=== PATIENT | male | born 1985 | race Caucasian/White ===

== ENCOUNTER 2024-01-12 13:29 | Emergency (ER) | payer BC, SELFPAY ==
[2024-01-12] VITALS (7 sets, daily range): BP systolic 101–118; BP diastolic 67–99; PULSE 84–115; RESP 18–20; TEMP 36.7–36.9; O2SAT 96–99; BMI 24.3
--- NOTE | 2024-01-12 13:58 | ED.GENADULT ---
HPI - General Adult General Chief complaint: Abdominal Pain Stated complaint: Vomiting Time Seen by Provider: 01/12/24 16:24 Source: patient Mode of arrival: ambulatory Limitations: no limitations History of Present Illness ED Provider: Dr. Lala Ryan HPI narrative: patient comes to the emergency room complaining of vomiting. Patient states that it has been going on for 2 days. Patient reports that couple of days ago patient ate Italian food, consisting of rice and pork. Patient states that he usually does not eat pork. However, patient admits that he took some of the food To his house and and reheated the rice. patient denies diarrhea. Complaining of abdominal discomfort. Also, patient states that he has been feeling a bit lightheaded, states that he nearly passed out few days ago at work. The patient states that his symptoms have been going on for about a year. Patient denies syncopal episodes, no chest pain or shortness of breath. No lower extremity swelling or pain. Related Data Allergies Allergy/AdvReac Type Severity Reaction Status Date / Time No Known Allergies Allergy Verified 01/12/24 14:00 Review of Systems Review of Systems: Constitutional : No Weight loss, No Fever, No Chills, No Night Sweats, No Fatigue, No Malaise ENT/Mouth : No Hearing loss, No Ear Pain, No Nasal Congestion, No Sinus Pain, No Hoarseness, No sore throat, No Rhinorrhea, No Swallowing Difficulty Eyes: No Eye Pain, No Swelling, No Redness, No Foreign Body, No Discharge, No Vision Changes Cardiovascular : No Chest Pain, No SOB, No Dyspnea on Exertion, No Orthopnea, No Edema, No Palpitations Respiratory : No Cough, No Sputum, No Wheezing, No Smoke Exposure, No Dyspnea Gastrointestinal : Complaining of nausea and vomiting, No Diarrhea, No Constipation, No abdominal Pain, No Hematochezia, No Melena Genitourinary : no irregular bleeding, No Dysuria, No Urinary Frequency, No Hematuria, No Urinary Incontinence, No Urgency, No Flank Pain, No Urinary Flow Changes, No Hesitancy Musculoskeletal : No joint pain, No Myalgias, No Joint Swelling Skin : No Skin Lesions, No rash Neuro : No Weakness, No Numbness, No Paresthesias, No Loss of Consciousness, No Dizziness, No Headache Psych : No Anxiety/Panic, No Depression, No SI/HI/AH/VH, No Social Issues, Heme/Lymph: No Bruising, No Bleeding,No Lymphadenopathy Endocrine : No Polyuria, No Polydipsia, No Temperature Intolerance [facility] Social History Social History Smoked in Last 30 Days: No Use of substances other than those prescribed or required for medical reasons: No Substance Use Type: Former Substance User Advance Directives: No Advance Directives Information Provided: Yes Do you have a plan to hurt others: No Plan Physical Exam ED Vital Signs: Vital Signs - 24 hr 01/12/24 13:56 01/12/24 16:30 01/12/24 17:23 Temperature 98.5 F 98.2 F Pulse Rate 92 91 94 Respiratory Rate 18 18 Blood Pressure 113/67 118/73 110/71 Pulse Oximetry 98 99 Oxygen Delivery Method Room Air Room Air 01/12/24 17:25 01/12/24 17:27 01/12/24 17:29 Temperature Pulse Rate 84 115 H 115 H Respiratory Rate 20 Blood Pressure 101/73 114/70 114/70 Pulse Oximetry Oxygen Delivery Method BMI result Body Mass Index 24.3 Const Other: Appearance: Alert. Oriented X3. No acute distress. Eyes: Pupils equal, round and reactive to light. ENT: Pharynx normal. Neck: Normal inspection. Neck supple. No lymph nodes noted. No crepitus CVS: Normal heart rate and rhythm. Pulses normal. Normal S1 and S2 Respiratory: No respiratory distress. Breath sounds normal. No Wheezing. No rales Abdomen: Soft and nontender. No rigidity. No distention. Skin: Skin warm and dry. Normal skin color. Normal skin turgor. Extremities: No lower extremity edema. No Lacerations. No Rash Neuro: Oriented X 3. No motor deficit. No sensory deficit. Moving all extremities. No slurred speech. CN 2 through 12 grossly intact Psych: calm, cooperative, normal affect Course Course Course Narrative: RME, this is a rapid medical exam performed by Ronnie Cobos please refer to primary provider for complete H&P- 38 year old male presents for evaluation of upper abdominal pain and vomiting. He reports that he ate pork for the first time in years prior to the onset of his symptoms. Plan for labs, UA Medications Administered Discontinued Medications Generic Name Dose Route Start Last Admin Trade Name Freq PRN Reason Stop Dose Admin Sodium Chloride 2,000 mls @ 999 mls/hr 01/12/24 16:33 01/12/24 20:11 Ns IVCONT 01/12/24 18:33 Infused .Q2H1M ONE Infusion Ondansetron HCl 4 mg 01/12/24 16:33 01/12/24 16:45 Ondansetron Hcl 4 Mg/2 Ml Vial IVPUSH 01/12/24 16:34 4 mg ONCE ONE Administration Medical Decision Making Medical Decision Making MDM Narrative: my interpretation of labs: Patient's hematology within normal limits, creatinine is 1.87, we do not have any previous labs for comparison. Urinalysis contaminated. - patient was given 2 L of normal saline. Patient states that he remembers that he has been told that his kidney functions is not normal. Patient states that he will take care of it with his primary care physician. - patient feeling well, patient eating [employer] and [employer], self p.o. challenged and passed Lab Data 01/12/24 14:37 01/12/24 14:37 Labs: Lab Results 01/12/24 01/12/24 01/12/24 Range/Units 14:37 14:38 17:30 WBC 11.0 H (4.8-10.8) X10*3/uL RBC 4.74 (4.60-5.80) X10*6/uL Hgb 13.5 L (14.0-18.0) g/dl Hct 40.3 L (42.0-52.0) % MCV 85.0 (80.0-98.0) fL MCH 28.5 (27.0-33.0) pg MCHC 33.5 (31.0-36.0) g/dl RDW 13.1 (11.0-16.0) % Plt Count 255 (160-400) X10*3/uL MPV 9.4 (9.4-12.4) fL Immature Gran % (Auto) 0.4 (0.0-0.4) % Neut % (Auto) 68.1 (45-73) % Lymph % (Auto) 25.7 (20-40) % [place] % (Auto) 5.3 (2-11) % Eos % (Auto) 0.2 (0-4) % Baso % (Auto) 0.3 (0-2) % Lymph # (Auto) 2.8 (1.2-4.9) X10*3/uL [place] # (Auto) 0.6 (0.1-1.2) X10*3/uL Eos # (Auto) 0.0 (0.0-0.4) X10*3/uL Baso # (Auto) 0.0 (0.0-0.2) X10*3/uL Abs Immat Gran (auto) 0.04 H (0.00-0.03) X10*3/uL Absolute Neuts (auto) 7.5 (2.0-8.3) x10*3/uL Absolute Nucleated RBC 0.000 (0.0-0.012) X10*3/uL Nucleated RBC % (auto) 0.0 (0.0-0.2) /100WBC Sodium 139 (135-145) mmol/L Potassium 3.9 (3.3-5.1) mmol/L Chloride 106 (96-108) mmol/L Carbon Dioxide 24 (22-29) mmol/L Anion Gap 13 (12-20) BUN 23 H (9-16) mg/dL Creatinine 1.87 H (0.5-1.4) mg/dL Estim Creat Clear Calc 61.1 Estimated GFR 41 Random Glucose 92 (60-115) mg/dL Calcium 10.2 (8.4-10.2) mg/dL Total Bilirubin 0.4 (0.0-1.0) mg/dL AST 37 (5-37) U/L ALT 30 (0-40) U/L Alkaline Phosphatase 75 (39-117) U/L Troponin I High Sens < 2.7 (<3.5-35.0) ng/L Total Protein 7.5 (6.5-8.0) g/dL Albumin 4.6 (3.5-5.0) g/dL Lipase 10 (8-78) U/L Urine Color Dark Yellow Urine Appearance Cloudy Urine pH 5.5 (5.0-9.0) Ur Specific [place] >= 1.030 H (1.005-1.025) Urine Protein 100 (2+) H (Neg-Trace) mg/dL Urine Glucose (UA) Negative (Negative) mg/dL Urine Ketones 15 (Negative) mg/dL Urine Blood Negative (Negative) Urine Nitrite Negative (Negative) Ur Leukocyte Esterase Small (1+) H (Negative) Urine RBC 0-2 (0-2) /HPF Urine WBC 21-50 H (0-5) /HPF Ur Squamous Epith Cells 11-20 (0-2) /HPF Calcium Oxalate Crystal Present Urine Bacteria None Seen (None Seen) Hyaline Casts >20 (0-2) /LPF Discharge Plan Discharge Clinical Impression: Gastroenteritis Patient Disposition: Home, Self-Care Instructions: Gastroenteritis (ED) Additional Instructions: Please follow-up with your primary care physician tomorrow. If you have any worsening or new symptoms, please return to the emergency room or call 911 Stand Alone Forms: Work/School Release Print Language: Georgian
[2024-01-12 14:43] LABS: MANUAL DIFF FLAG NO
[2024-01-12 14:45] LABS: Basophils Percent Auto 0.3 % (0-2); Eosinophils Percent Auto 0.2 % (0-4); Hematocrit 40.3 % (42.0-52.0); Hemoglobin 13.5 g/dl (14.0-18.0); Imm Gran Abs Auto 0.04 X10*3/uL (0.00-0.03); Imm Gran Pct Auto 0.4 % (0.0-0.4); Lymphocytes Absolute Auto 2.8 X10*3/uL (1.2-4.9); Lymphocytes Percent Auto 25.7 % (20-40); Mean Corpuscular HGB Conc 33.5 g/dl (31.0-36.0); Mean Corpuscular Hemoglobin 28.5 pg (27.0-33.0); Mean Platelet Volume 9.4 fL (9.4-12.4); Monocytes Absolute Auto 0.6 X10*3/uL (0.1-1.2); Monocytes Percent Auto 5.3 % (2-11); Neutrophils Absolute Auto 7.5 x10*3/uL (2.0-8.3); Neutrophils Percent Auto 68.1 % (45-73); Platelet Count 255 X10*3/uL (160-400); Red Blood Count 4.74 X10*6/uL (4.60-5.80); Red Cell Distribution Width 13.1 % (11.0-16.0)
[2024-01-12 14:47] LABS: Appearance Urine Cloudy; Color Urine Dark Yellow; Glucose Urine UA Negative (Negative); Leukocyte Esterase Urine Small (1+) (Negative); Nitrite Urine Negative (Negative); PH 5.5 (5.0-9.0); Specific Gravity - Urine >= 1.030 (1.005-1.025); UMIC TRIGGER UACC YES; Urine Blood Negative (Negative); Urine Ketones 15 mg/dL (Negative); Urine Protein 100 (2+) mg/dL (Neg-Trace)
[2024-01-12 15:00] LABS: Bacteria Urine None Seen (None Seen); Calcium Oxalate Crystals Urine Present; Hyaline Casts Urine >20 /LPF (0-2); RBC Urine 0-2 /HPF (0-2); UACC Culture Trigger YES; WBC Urine 21-50 /HPF (0-5)
[2024-01-12 15:02] LABS: Alanine Aminotransferase 30 U/L (0-40); Albumin Level 4.6 g/dL (3.5-5.0); Alkaline Phosphatase 75 U/L (39-117); Anion Gap 13 (12-20); Aspartate Amino Transferase 37 U/L (5-37); Bilirubin Total 0.4 mg/dL (0.0-1.0); Blood Urea Nitrogen 23 mg/dL (9-16); Calcium 10.2 mg/dL (8.4-10.2); Carbon Dioxide 24 mmol/L (22-29); Chloride 106 mmol/L (96-108); Creatinine Clr Calc Pharmacy 61.1; Estimated Glomerular Filt Rate 41; Glucose Random 92 mg/dL (60-115); Lipase 10 U/L (8-78); Potassium 3.9 mmol/L (3.3-5.1); Sodium 139 mmol/L (135-145); Total Protein 7.5 g/dL (6.5-8.0)
--- NOTE | 2024-01-12 16:38 | ECG_ITS ---
Test Reason : ABD PAIN Blood Pressure : / mmHG Vent. Rate : 078 BPM Atrial Rate : 078 BPM P-R Int : 248 ms QRS Dur : 094 ms QT Int : 382 ms P-R-T Axes : -11 -22 011 degrees QTc Int : 435 ms Sinus rhythm with 1st degree A-V block Moderate voltage criteria for LVH, may be normal variant ( R in aVL , [place] product ) Borderline ECG No previous ECGs available Referred By: Lala Ryan Electronically Signed By:Bryce Price
[2024-01-12] MEDS: 0.9 % Sodium Chloride 2,000 ML 999 ML IVCONT (16:41)
[2024-01-12] MEDS: ondansetron HCL 4 MG/2 ML VIAL IVPUSH (16:45)
--- NOTE | 2024-01-12 16:50 | PC.NURSE ---
pt a&ox3, iv inserted, labs previously drawn, pt medicated for zofran for nausea, IVF hung per order.
[2024-01-12 18:02] LABS: Troponin-I High Sensitivity < 2.7 ng/L (<3.5-35.0)
--- NOTE | 2024-01-12 18:23 | PC.NURSE ---
pt had PO challenge, given darryl balta and crackers.
--- NOTE | 2024-01-12 20:27 | PC.NURSE ---
Report taken from Ainsley ORELLANA assumed care of pt at 1900. Pt resting on stretcher at this time. IVF completed, tolerating PO without difficulty. Denies pain, reports feeling much better. Awaiting repeat lab result and MD reeval, aware of plan of care.
== END 2024-01-12 21:49 | disposition home or self-care (01) ==
PROVIDERS: Physician Assistant; Emergency Provider Emergency Medicine
DX: K52.9 Noninfective gastroenteritis and colitis, unspecified (principal); R11.2 Nausea with vomiting, unspecified; R42 Dizziness and giddiness; I44.0 Atrioventricular block, first degree; R94.31 Abnormal electrocardiogram [ECG] [EKG]; R10.2 Pelvic and perineal pain; Z79.899 Other long term (current) drug therapy
CPT/HCPCS: 36415; 80053; 81001; 83690; 84484; 85025; 87086; 93005; 96361; 96374; 99285; J2405

== ENCOUNTER → 2024-01-12 16:38 | Outpatient (BNV) | payer BC, SELFPAY | PROVIDERS: Emergency Provider Emergency Medicine; Visit Provider Internal Medicine Cardiovascular Disease | DX: R10.9 Unspecified abdominal pain (principal) | CPT/HCPCS: 93010 ==

== ENCOUNTER → 2024-08-31 02:10 | Outpatient (BNV) | payer SELFPAY | PROVIDERS: Emergency Provider Emergency Medicine; Visit Provider Radiology Diagnostic Radiology | DX: R91.8 Other nonspecific abnormal finding of lung field (principal) | CPT/HCPCS: 71045 ==

== ENCOUNTER 2024-08-31 03:03 | Emergency (ER) | payer SELFPAY ==
--- NOTE | ~2024-08-31 | XR_ITS ---
CLINICAL HISTORY: sob 1 view chest x-ray Comparison: None Findings: Subtle ground-glass opacity in the right mid to lower lung. No pleural effusion. Heart size is normal. No acute fracture. IMPRESSION: Subtle right mid to lower lung ground-glass opacities nonspecific. This could be an artifact or subtle consolidation. Recommend follow-up. This document has been electronically signed by: Rosa Tapia MD on 08/31/2024 03:52:37
[2024-08-31 03:17] VITALS: BP 125/86; PULSE 85; RESP 18; TEMP 36.6; O2SAT 99; BMI 23.1
[2024-08-31 03:22] VITALS: BP 125/86; PULSE 76; O2SAT 98
[2024-08-31 03:24] LABS: Basophils Percent Auto 0.4 % (0-2); Eosinophils Absolute Auto 0.5 X10*3/uL (0.0-0.4); Eosinophils Percent Auto 6.8 % (0-4); Hematocrit 34.7 % (42.0-52.0); Hemoglobin 11.6 g/dl (14.0-18.0); Imm Gran Abs Auto 0.01 X10*3/uL (0.00-0.03); Imm Gran Pct Auto 0.1 % (0.0-0.4); Lymphocytes Absolute Auto 1.9 X10*3/uL (1.2-4.9); Lymphocytes Percent Auto 27.9 % (20-40); MANUAL DIFF FLAG NO; Mean Corpuscular HGB Conc 33.4 g/dl (31.0-36.0); Mean Corpuscular Hemoglobin 28.2 pg (27.0-33.0); Mean Corpuscular Volume 84.4 fL (80.0-98.0); Mean Platelet Volume 8.3 fL (9.4-12.4); Monocytes Absolute Auto 0.6 X10*3/uL (0.1-1.2); Monocytes Percent Auto 8.8 % (2-11); Neutrophils Absolute Auto 3.8 x10*3/uL (2.0-8.3); Platelet Count 207 X10*3/uL (160-400); Red Blood Count 4.11 X10*6/uL (4.60-5.80); Red Cell Distribution Width 13.8 % (11.0-16.0); White Blood Count 6.7 X10*3/uL (4.8-10.8)
[2024-08-31] MEDS: Magnesium Sulfate/H2O 2 GM/50 ML PIGGYBACK IV (03:26)
[2024-08-31 03:27] LABS: VBG Base Excess 5.4 mmol/L; VBG HCO3 31 mmol/L (22-26); VBG pCO2 50 mmHg; VBG pH 7.39 (7.32-7.43); VBG pO2 40 mmHg
[2024-08-31 03:27] LABS: Venous Blood Gas Refer to POC result
[2024-08-31 03:28] VITALS: PULSE 83; RESP 18; O2SAT 99
[2024-08-31] MEDS: Albuterol/Iprat 2.5/0.5MG 3 ML AMPUL.NEB INHALE (03:28)
--- NOTE | 2024-08-31 03:34 | ED_ITS ---
HPI - General Adult General Chief complaint: General Medical Stated complaint: SOB Time Seen by Provider: 08/31/24 03:10 Source: patient and EMS Mode of arrival: EMS Limitations: no limitations History of Present Illness ED Provider: Dr. Lala Ryan HPI narrative: Patient comes to the emergency room complaining of shortness of breath, wheezing, patient known to have asthma, states he ran out of albuterol 3 days ago. Denies any chest pain, denies any recent URI. Patient admits that prior to arrival he used cocaine Related Data Previous Rx's ?Medication ?Instructions ?Recorded albuterol sulfate 90 mcg/actuation 2 puff inhalation Q4-6H PRN 08/31/24 aerosol inhaler shortness of breath or wheezing #8.5 grams azithromycin 250 mg tablet 250 mg PO DAILY 4 days #4 tabs 08/31/24 prednisone 50 mg tablet 50 mg PO DAILY #4 tabs 08/31/24 Allergies Allergy/AdvReac Type Severity Reaction Status Date / Time No Known Allergies Allergy Verified 08/31/24 03:18 Review of Systems 2 Review of Systems: Constitutional : No Weight loss, No Fever, No Chills, No Night Sweats, No Fatigue, No Malaise ENT/Mouth : No Hearing loss, No Ear Pain, No Nasal Congestion, No Sinus Pain, No Hoarseness, No sore throat, No Rhinorrhea, No Swallowing Difficulty Eyes: No Eye Pain, No Swelling, No Redness, No Foreign Body, No Discharge, No Vision Changes Cardiovascular : No Chest Pain, No SOB, No Dyspnea on Exertion, No Orthopnea, No Edema, No Palpitations Respiratory : Complaining of my cough, multiple wheezing episodes throughout the last 3 days, flu short of breath Gastrointestinal : No Nausea, No Vomiting, No Diarrhea, No Constipation, No abdominal Pain, No Hematochezia, No Melena Genitourinary : no irregular bleeding, No Dysuria, No Urinary Frequency, No Hematuria, No Urinary Incontinence, No Urgency, No Flank Pain, No Urinary Flow Changes, No Hesitancy Musculoskeletal : No joint pain, No Myalgias, No Joint Swelling Skin : No Skin Lesions, No rash Neuro : No Weakness, No Numbness, No Paresthesias, No Loss of Consciousness, No Dizziness, No Headache Psych : No Anxiety/Panic, No Depression, No SI/HI/AH/VH, admits to cocaine abuse, Heme/Lymph: No Bruising, No Bleeding,No Lymphadenopathy Endocrine : No Polyuria, No Polydipsia, No Temperature Intolerance [facility] Past Medical History Medical History (Updated 08/31/24 @ 04:41 by Lala Ryan MD) Cocaine abuse Asthma Social History Social History Substance Use Type: Former Substance User Advance Directives: No Physical Exam ED Vital Signs: Vital Signs - 24 hr 08/31/24 03:17 08/31/24 03:28 08/31/24 05:00 Temperature 98 F 97.9 F Pulse Rate 85 83 83 Respiratory Rate 18 18 20 Blood Pressure 125/86 125/86 Pulse Oximetry 99 100 Oxygen Delivery Method Room Air Room Air BMI result Body Mass Index 23.1 Const Other: Appearance: Alert. Oriented X3. No acute distress. Eyes: Pupils equal, round and reactive to light. ENT: Pharynx normal. Neck: Normal inspection. Neck supple. No lymph nodes noted. No crepitus CVS: Normal heart rate and rhythm. Pulses normal. Normal S1 and S2 Respiratory: Moderate bilateral wheezing, decreased air movement. No rales or crackles Abdomen: Soft and nontender. No rigidity. No distention. Skin: Skin warm and dry. Normal skin color. Normal skin turgor. Extremities: No lower extremity edema. No Lacerations. No Rash Neuro: Oriented X 3. No motor deficit. No sensory deficit. Moving all extremities. No slurred speech. CN 2 through 12 grossly intact Psych: calm, cooperative, normal affect Course Course Course Narrative: Per EMS, patient received a nebulization treatment. Here in the emergency room, patient getting more nebulization treatments, in addition to Solu-Medrol and magnesium Patient's labs and imaging pending. [facility] protocol in place Medications Administered Discontinued Medications Generic Name Dose Route Start Last Admin Trade Name Freq PRN Reason Stop Dose Admin Albuterol/Ipratropium 3 ml 08/31/24 03:24 08/31/24 03:28 Albuterol/Iprat 2.5/0.5mg 3 Ml Ampul.Neb INHALE 08/31/24 03:25 3 ml ONCE ONE Administration Magnesium Sulfate 2 gm in 50 mls @ 25 mls/hr 08/31/24 03:10 08/31/24 05:12 Magnesium Sulfate/H2o IV 08/31/24 05:09 Infused ONCE ONE Infusion Methylprednisolone Sodium Succinate 125 mg 08/31/24 03:10 08/31/24 03:26 Methylprednisolone Sod Succ 125 Mg Vial IVPUSH 08/31/24 03:11 125 mg ONCE ONE Administration Medical Decision Making Medical Decision Making [facility] Narrative: Chest x-ray shows some mild ground-glass opacity in the right middle lobe. Patient states that he has no URI symptoms. Patient will be empirically covered with antibiotics. There the above-mentioned treatment, patient states that he feels much better breathing. No longer wheezing. Patient declined ambulation trial Patient ready for discharge Differential Diagnosis Differential Diagnoses: The differential diagnosis associated with the presentation includes Admission/Observation Consideration of admission/observation: Escalation of care including admission/observation considered (Given patient's presentation, observation was considered) Lab Data [facility] Lab Attestation statement: I reviewed the patient's lab results. 08/31/24 03:17 08/31/24 03:17 Labs: Lab Results 08/31/24 08/31/24 Range/Units 03:17 03:24 WBC 6.7 (4.8-10.8) X10*3/uL RBC 4.11 L (4.60-5.80) X10*6/uL Hgb 11.6 L (14.0-18.0) g/dl Hct 34.7 L (42.0-52.0) % MCV 84.4 (80.0-98.0) fL MCH 28.2 (27.0-33.0) pg MCHC 33.4 (31.0-36.0) g/dl RDW 13.8 (11.0-16.0) % Plt Count 207 (160-400) X10*3/uL MPV 8.3 L (9.4-12.4) fL Immature Gran % (Auto) 0.1 (0.0-0.4) % Neut % (Auto) 56.0 (45-73) % Lymph % (Auto) 27.9 (20-40) % [place] % (Auto) 8.8 (2-11) % Eos % (Auto) 6.8 H (0-4) % Baso % (Auto) 0.4 (0-2) % Lymph # (Auto) 1.9 (1.2-4.9) X10*3/uL [place] # (Auto) 0.6 (0.1-1.2) X10*3/uL Eos # (Auto) 0.5 H (0.0-0.4) X10*3/uL Baso # (Auto) 0.0 (0.0-0.2) X10*3/uL Abs Immat Gran (auto) 0.01 (0.00-0.03) X10*3/uL Absolute Neuts (auto) 3.8 (2.0-8.3) x10*3/uL Absolute Nucleated RBC 0.000 (0.0-0.012) X10*3/uL Nucleated RBC % (auto) 0.0 (0.0-0.2) /100WBC VBG pH 7.39 (7.32-7.43) VBG pCO2 50 mmHg VBG pO2 40 mmHg VBG HCO3 31 H (22-26) mmol/L VBG O2 Saturation 62.0 % VBG Base Excess 5.4 mmol/L Sodium 141 (135-145) mmol/L Potassium 3.9 (3.3-5.1) mmol/L Chloride 107 (96-108) mmol/L Carbon Dioxide 27 (22-29) mmol/L Anion Gap 11 L (12-20) BUN 20 H (9-16) mg/dL Creatinine 1.01 (0.5-1.4) mg/dL Estim Creat Clear Calc 108.1 Estimated GFR > 60 Random Glucose 119 H (60-115) mg/dL Calcium 9.0 D (8.4-10.2) mg/dL Total Bilirubin 0.4 (0.0-1.0) mg/dL AST 140 H (5-37) U/L ALT 157 H (0-40) U/L Alkaline Phosphatase 97 (39-117) U/L Total Protein 6.8 (6.5-8.0) g/dL Albumin 3.8 (3.5-5.0) g/dL Influenza Type A (PCR) NEGATIVE (Negative) Influenza Type B (PCR) NEGATIVE (Negative) RSV RNA Qual (PCR) NEGATIVE (Negative) SARS-CoV-2 RNA (RT-PCR) NEGATIVE (Negative) Independent Interpretation I performed an independent interpretation of an: Plain X-Ray Radiology Impression Discussion of test interpretation with radiology: I have reviewed the radiologist's reading. Radiologist Impression: Subtle ground-glass opacity in the right mid to lower lung. No pleural effusion. Heart size is normal. No acute fracture. Critical Care Time Critical Care Time Critical Care Time: Yes Total Critical Care Time: 35 Attestation: I have personally provided critical care time. Time includes review of lab data, radiology results, discussion with consultants, and monitoring for potential decompensation. Intervention performed as documented. Discharge Plan Discharge Clinical Impression: Asthma Patient Disposition: Home, Self-Care Instructions: Asthma (ED) Additional Instructions: Your x-ray shows a possible early infiltrate/pneumonia. You will be empirically treated with antibiotics. Please follow-up with your primary care physician tomorrow. If you have any worsening or new symptoms, please return to the emergency room or call 911 Prescriptions: New prednisone 50 mg tablet 50 mg PO DAILY Qty: 4 0RF azithromycin 250 mg tablet 250 mg PO DAILY 4 Days Qty: 4 0RF Rx Instructions: start on day 2 of therapy albuterol sulfate 90 mcg/actuation HFA aerosol inhaler 2 puff inhalation Q4-6H PRN (Reason: shortness of breath or wheezing) Qty: 8.5 1RF Print Language: Portuguese
[2024-08-31 03:41] LABS: Alanine Aminotransferase 157 U/L (0-40); Albumin Level 3.8 g/dL (3.5-5.0); Alkaline Phosphatase 97 U/L (39-117); Anion Gap 11 (12-20); Aspartate Amino Transferase 140 U/L (5-37); Bilirubin Total 0.4 mg/dL (0.0-1.0); Blood Urea Nitrogen 20 mg/dL (9-16); Carbon Dioxide 27 mmol/L (22-29); Chloride 107 mmol/L (96-108); Creatinine Clr Calc Pharmacy 108.1; Estimated Glomerular Filt Rate > 60; Glucose Random 119 mg/dL (60-115); Potassium 3.9 mmol/L (3.3-5.1); Sodium 141 mmol/L (135-145); Total Protein 6.8 g/dL (6.5-8.0)
[2024-08-31 04:02] LABS: Influenza A PCR NEGATIVE (Negative); Influenza B PCR NEGATIVE (Negative); Resp Syncy Virus RNA Qual PCR NEGATIVE (Negative); SARS COV2 PCR INHOUSE NEGATIVE (Negative)
[2024-08-31 05:00] VITALS: BP 125/86; PULSE 83; RESP 20; TEMP 36.6; O2SAT 100
--- NOTE | 2024-08-31 05:02 | MHC.EDTECH ---
Patient refused ambulation trial ,Provider Shelby aware .
[2024-08-31] MEDS: Azithromycin 500 MG TABLET PO (05:16)
[2024-08-31 05:25] VITALS: BP 125/86; PULSE 83; RESP 20; TEMP 36.6; O2SAT 100
--- NOTE | 2024-08-31 05:28 | PC.NURSE ---
pt had an ambulation test pt stated at 98
== END 2024-08-31 05:29 | disposition home or self-care (01) ==
PROVIDERS: Emergency Provider Emergency Medicine
DX: J45.909 Unspecified asthma, uncomplicated (principal); R06.02 Shortness of breath; Z03.818 Encounter for observation for suspected exposure to other biological agents ruled out
CPT/HCPCS: 0241U; 36415; 71045; 80053; 82803; 85025; 94640; 96365; 96366; 96375; 99284; 99285; J2919; J3475

== ENCOUNTER 2024-10-06 09:27 | Emergency (ER) | payer MEDICAID, SELFPAY ==
[2024-10-06 09:29] VITALS: BP 104/50; PULSE 87; RESP 18; TEMP 36.1; O2SAT 99; BMI 24.7
--- NOTE | 2024-10-06 09:39 | ED.GENADULT ---
HPI - General Adult General Chief complaint: General Medical Stated complaint: medication Time Seen by Provider: 10/06/24 09:34 Source: patient and RN notes reviewed Mode of arrival: ambulatory Limitations: no limitations History of Present Illness ED Provider: Virginia Cross PA-C [facility] narrative: This is a 39-year-old male, with a past medical history of polysubstance abuse, who presents emergency department for evaluation of methadone dosing. Patient states that he is transferring his methadone clinic from [facility] [place] to [facility] in [place]. He states that he just moved and has not started with [facility] however [facility] and [place] was sending over all of his records to [facility] however [facility]'s fax machine is broken. Patient reports that he is currently on methadone 40 mg, last dose was yesterday. He is feeling well, no current pain or complaints. No other complaints or concerns at this time. MD complaint: Methadone dosing Relieving factors: none Exacerbating factors: none Treatments prior to arrival: none Related Data Previous Rx's ?Medication ?Instructions ?Recorded albuterol sulfate 90 mcg/actuation 2 puff inhalation Q4-6H PRN 08/31/24 aerosol inhaler shortness of breath or wheezing #8.5 grams azithromycin 250 mg tablet 250 mg PO DAILY 4 days #4 tabs 08/31/24 prednisone 50 mg tablet 50 mg PO DAILY #4 tabs 08/31/24 Allergies Allergy/AdvReac Type Severity Reaction Status Date / Time No Known Allergies Allergy Verified 10/06/24 09:31 Review of Systems Review of Systems: Yes all other systems are reviewed and are negative Constitutional: Constitutional: Reports as per [facility] Past Medical History Attestation statement: The following information was validated with the patient. Medical History Cocaine abuse Asthma Social History Social History Substance Use Type: Crack/Cocaine, IV Drugs and Marijuana Advance Directives: No Advance Directives Information Provided: No Physical Exam ED Vital Signs: Vital Signs - 24 hr 10/06/24 09:29 Temperature 97 F Pulse Rate 87 Respiratory Rate 18 Blood Pressure 104/50 L Pulse Oximetry 99 Oxygen Delivery Method Room Air BMI result Body Mass Index 24.7 Const General: cooperative, comfortable and no acute distress Orientation/consciousness: patient oriented x3 Limitations: no limitations [facility] Head: Yes normal to inspection, Yes normocephalic and Yes atraumatic Ears: hearing grossly normal bilaterally General nose exam: Normal external nose present Face and sinus: Yes normal facial exam Mouth: Normal oral and palatal mucosa present, oropharynx normal and moist mucous membranes Throat: Yes posterior oropharynx normal Eyes General: appearance normal, both eyes and all related structures Eyelids: Yes eyelids normal Conjunctivae: conjunctivae normal Sclerae: sclerae normal Pupils: Equal, round and reactive pupils present EOM: EOMs intact bilaterally Neck Neck: Yes normal visual inspection, Yes full ROM and Yes no lymphadenopathy Lymphatic: no lymphadenopathy noted Chest Chest palpation & inspection: normal inspection of the chest Resp Effort & Inspection: normal respiratory effort and able to speak in complete sentences Auscultation: clear to auscultation bilaterally, no crackles, no rales, no rhonchi and no wheezes Cardio Rate: regular rate Rhythm: regular rhythm Heart sounds: S1 normal heart sound present and S2 normal heart sound present GI Inspection: Yes normal to inspection Skin General skin exam: no rashes or lesions noted Trauma: no lacerations or abrasions Wounds: no wounds Neuro General: patient oriented x3 and moves all extremities Cranial nerves: Yes Equal, round and reactive pupils present Extrem General: Yes normal to inspection Right upper extremity: normal to inspection Left upper extremity: normal to inspection Right lower extremity: normal to inspection Left lower extremity: normal to inspection Medical Decision Making Medical Decision Making MDM Narrative: This is a 39-year-old male who presents emergency department for methadone dosing. On arrival, patient's blood pressure on the lower end, 104/50, he is resting comfortably, he is under no acute distress. No chest pain or shortness of breath. No dizziness. No vision changes. Patient is in the process of changing his Methadone Clinic, and has not had his methadone dosing today. He was previously being seen at [facility] in [place]. Nursing staff called over to methadone Clinic, verified dosing. Patient will be dosed with a methadone 40 mg. Differential Diagnosis Differential Diagnoses: The differential diagnosis associated with the presentation includes Polysubstance abuse, methadone dosing, medication refill, anxiety Discharge Plan Discharge Clinical Impression: Methadone dependence Patient Disposition: Home, Self-Care Instructions: Opioid Use Disorder (ED) Additional Instructions: You were seen in the emergency department for methadone dosing. We gave you methadone 40 mg by mouth. Please follow-up with your methadone clinic to resume your regimen. If any new or worsening symptoms occur including but not limited to severe chest pain, shortness of breath, please seek emergent care. Prescriptions: No Action prednisone 50 mg tablet 50 mg PO DAILY Qty: 4 0RF azithromycin 250 mg tablet 250 mg PO DAILY 4 Days Qty: 4 0RF Rx Instructions: start on day 2 of therapy albuterol sulfate 90 mcg/actuation HFA aerosol inhaler 2 puff inhalation Q4-6H PRN (Reason: shortness of breath or wheezing) Qty: 8.5 1RF Print Language: Divehi
--- OUTSIDE RECORDS SUMMARY | 2024-10-06 09:47 | XMS_ITS | Patient Health Record ---
Author Organization [facility] Address [address] et [place], [place] [id number] Care Team Providers Care Shipping Clerk Crating Name Role Phone NO, PCP Primary Care Provider Alexandria Villegas Unavailable ZZ[employer] - DO NOT USE, Housing Search Unavailab le Unavailable Reason For Referral No Information Plan Of Treatment No Information Insurance Providers Payer Name Payer Address Payer Phone Subscriber Number Group Number Insured Name Patient Relationship to Insured Coverage Start Date Coverage End Date [facility] [address] CAROLINA HERNANDEZ [phone] [id number] Kelton Omalley Self - patient is the insured 3 3
--- NOTE | 2024-10-06 09:56 | PC.NURSE ---
methadone verification form filled out/faxed to pharmacy/placed in pt's chart.
--- NOTE | 2024-10-06 10:14 | HE.PHANOTE ---
METHADONE CONFIRMATION FORM PATIENT TAKES 40MG FROM [facility] LAST DOSE 10/05 @ [id number]
[2024-10-06] MEDS: methADONE HCl 20 MG/2 ML ORAL.CONC 40 MG PO (10:25)
--- NOTE | 2024-10-06 10:29 | PC.NURSE ---
patient medicated prior to d/c. pt provided w/ last dose letter.
[2024-10-06 10:30] VITALS: BP 104/50; PULSE 87; RESP 18; TEMP 36.1; O2SAT 99
== END 2024-10-06 10:31 | disposition home or self-care (01) ==
PROVIDERS: Emergency Provider Emergency Medicine
DX: F11.20 Opioid dependence, uncomplicated (principal)
CPT/HCPCS: 99284

== ENCOUNTER 2024-10-07 09:49 | Emergency (ER) | payer MEDICAID, SELFPAY ==
[2024-10-07 09:58] VITALS: BP 148/62; PULSE 88; RESP 16; TEMP 36.1; O2SAT 98; BMI 24.7
--- NOTE | 2024-10-07 11:04 | ED_ITS ---
HPI - General Adult General Chief complaint: General Medical Stated complaint: Methadone Dose Time Seen by Provider: 10/07/24 11:04 Source: patient Mode of arrival: ambulatory Limitations: no limitations History of Present Illness ED Provider: Molly Arceo PA-C HPI narrative: Patient is a 39 year old assigned male at with a history of OUD on Methadone presenting to the emergency department today for his methadone dose. Patient states that he recently moved to the area and is in the process of getting established with a new clinic and will be able to get dosed there tomorrow (10/08/2024). Patient denies any dizziness, lightheadedness, abdominal pain, nausea, vomiting, fever, chills, blurry vision, double vision, loss of vision, chest pain, difficulty breathing, shortness of breath, back pain, night sweats, pain with urination, increased urinary frequency, increased urinary urgency, blood in his urine or stool, syncope or a near syncopal episode, recent trauma or falls, bowel incontinence, bladder incontinence, or any other complaints at this time. Relieving factors: none Exacerbating factors: none Associated symptoms: denies other symptoms Treatments prior to arrival: none Related Data Previous Rx's ?Medication ?Instructions ?Recorded albuterol sulfate 90 mcg/actuation 2 puff inhalation Q 4-6H PRN 08/31/24 aerosol inhaler shortness of breath or wheez ing #8.5 grams azithromycin 250 mg tablet 250 mg PO DAILY 4 days #4 t abs 08/31/24 prednisone 50 mg tablet 50 mg PO DAILY #4 tabs 08/31 Allergies Allergy/AdvReac Type Severity Reaction Status Date / Time No Known Allergies Allergy Verified 10/07/24 09:58 Review of Systems Constitutional: Constitutional: Reports no additional constitutional complaints, Denies chills, Denies fever(s) and Denies night sweats Eyes: Eyes: Reports no additional eye complaints, Denies blurry vision, Denies change in vision, Denies diplopia, Denies eye discharge, Denies loss of vision and Denies eye pain ENT: Denies dizziness Cardiovascular: Cardiovascular: Reports no additional cardiovascular complaints, Denies chest pain, Denies lightheadedness, Denies Loss of Consciousness and Denies dyspnea Respiratory: Respiratory: Reports no additional respiratory complaints and Denies dyspnea Gastrointestinal: Gastrointestinal: Reports no additional gastrointestinal complaints, Denies abdominal pain, Denies melena, Denies hematochezia, Denies change in bowel habits and Denies change in stool character Genitourinary: Genitourinary: Reports no additional male genitourinary complaints, Denies hematuria, Denies oliguria, Denies difficulty urinating, Denies dysuria, Denies urinary frequency, Denies urinary hesitancy, Denies urinary incontinence and Denies urinary urgency Musculoskeletal: Musculoskeletal: Reports no additional musculoskeletal complaints, Denies numbness and Denies tingling Neurologic: Denies dizziness, Denies loss of vision, Denies numbness and Denies tingling Psychiatric: Psychiatric: Reports no additional psychiatric complaints Endocrine: Endocrine: Reports no additional endocrine complaints Hematologic/Lymphatic: Hematologic/Lymphatic: Reports no additional hematologic/lymphatic complaints Allergic/Immunologic: Allergic/Immunologic: Reports no additional allergic/immunologic complaints PMFSH Past Medical History Attestation statement: The following information was validated with the patient. Source: old records reviewed and nursing notes reviewed Medical History Cocaine abuse Asthma Social History Social History Substance Use Type: Crack/Cocaine, IV Drugs and Marijuana Advance Directives: No Advance Directives Information Provided: No Physical Exam ED Vital Signs: Vital Signs - 24 hr 10/07/24 09:58 Temperature 97 F Pulse Rate 88 Respiratory Rate 16 Blood Pressure 148/62 H Pulse Oximetry 98 Oxygen Delivery Method Room Air BMI result Body Mass Index 24.7 Const General: cooperative, no acute distress, alert and awake Nutritional Appearance: well nourished Orientation/consciousness: patient oriented x3 HENMT Head: Yes normal to inspection and Yes atraumatic Ears: hearing grossly normal bilaterally and external ears normal General nose exam: Normal external nose present, no nasal discharge noted and no epistaxis Face and sinus: Yes normal facial exam, No abrasion and No laceration Mouth: Normal oral and palatal mucosa present, no drooling and no muffled voice Eyes General: appearance normal, both eyes and all related structures Periorbital: periorbital findings normal Eyelids: Yes eyelids normal Conjunctivae: conjunctivae normal Pupils: Equal, round and reactive pupils present EOM: EOMs intact bilaterally Neck Neck: Yes normal visual inspection, Yes full ROM and Yes no lymphadenopathy Resp Effort & Inspection: normal respiratory effort and able to speak in complete sentences Neuro General: patient oriented x3, moves all extremities and CN's II-XI intact bilaterally Cranial nerves: Yes Equal, round and reactive pupils present Cognition (Neuro): normal cognition Extrem General: Yes normal to inspection, Yes full ROM and Yes capillary refill normal Psych Appearance: grossly normal Mental Status: mental status grossly normal Affect: normal affect Attitude: cooperative Thought process: Normal thought process present Thought content: Normal thought content present Insight: Good insight present (Psych) Medications Administered Discontinued Medications Generic Name Dose Route Start Last Admin Trade Name Cherri PRN Reason Stop Dose Admin Methadone HCl 40 mg 10/07/24 11:05 10/07/24 11:12 Methadone Hcl 20 Mg/2 Ml Oral.Conc PO 10/07/24 11:06 40 mg ONCE ONE Administration Medical Decision Making Medical Decision Making MDM Narrative: Patient is a 39 year old assigned male at with a history of OUD on Methadone presenting to the emergency department today for his methadone dose. Patient's physical exam was unremarkable. I explained my physical exam findings to the patient. I answered all questions asked by the patient. Patient received his 40mg of methadone. I stressed the importance of the patient taking his medication as directed (either prescribed or as the over the counter packaging recommends). I stressed the importance of the patient following up with his primary care provider and with his methadone clinic. I stressed the importance of the patient returning to the emergency department immediately if his symptoms were to worsen or if he were to develop any dizziness, shortness of breath, difficulty breathing, chest pain, blurry vision, loss of vision, nausea, vomiting, abdominal pain, fever, chills, back pain, or any other complaints. Patient verbalized agreement and understanding with this treatment plan and discharge. Differential Diagnosis Differential Diagnoses: The differential diagnosis associated with the presentation includes Methadone dose Admission/Observation Consideration of admission/observation: Escalation of care including admission/observation considered Patient would have been admitted to the hospital had his clinical presentation warranted hospital admission. Discharge Plan Discharge Clinical Impression: Methadone use Patient Disposition: Home, Self-Care Instructions: Opioid Use Disorder (ED) Additional Instructions: You have now received your SECOND dose of Methadone in consecutive days here at the [facility] Emergency Department - you MUST follow up with your methadone clinic as we are not permitted BY LAW to dose you more than 3 days in a row. Follow up with your primary care provider. Return to the emergency department immediately if you develop any numbness, tingling, dizziness, shortness of breath, difficulty breathing, chest pain, blurry vision, loss of vision, nausea, vomiting, abdominal pain, fever, chills, back pain, or any other complaints. If you do not have a primary care provider - call any of the below numbers to establish and follow up with a primary care provider. [facility] Primary Care ([place]) [phone] [place] [address], [address] [facility] Primary Care ([address] [place]) [phone] [place] [address], [address] [facility], [address] [facility] Primary Care ([address] [place]) [phone] [place] [address], [address] [facility], [address] [facility] Primary Care ([place]) [phone] [place] [address] [address] [facility], [address] [facility] Family Medicine [phone] [place] [address], [address] Please see the information below about our Patient Portal. If you are not yet enrolled in the [facility] Patient Portal, you will receive an enrollment email invitation following your visit to any [facility] setting. You may also self-enroll in the Patient Portal by visiting our website: [email or web address] The following information is required to access the Patient Portal: - Your [facility] Medical Record Number - Your personal home email address (must match what is in your electronic medical record, Registration staff can assist with this) - Name - Date of Capabilities of the Patient Portal: - Message some providers - View upcoming appointments - Access your health summary, medical history, and visit history - View current conditions and allergies - View procedure and lab results - View your medications, including guidelines, side effects, and precautions - Complete pre-appointment questionnaires requested by your provider - Ready summary reports of your office visits and procedures To access the Patient Portal Mobile Liz, follow these directions: - Search [employer] in the Liz Store or [employer] Store - Download the Liz - Search for [facility] - Enter your login/password Prescriptions: No Action prednisone 50 mg tablet 50 mg PO DAILY Qty: 4 0RF azithromycin 250 mg tablet 250 mg PO DAILY 4 Days Qty: 4 0RF Rx Instructions: start on day 2 of therapy albuterol sulfate 90 mcg/actuation HFA aerosol inhaler 2 puff inhalation Q4-6H PRN (Reason: shortness of breath or wheezing) Qty: 8.5 1RF Discharge Date/Time: 10/07/24 11:14 Print Language: Tamazight
[2024-10-07] MEDS: methADONE HCl 20 MG/2 ML ORAL.CONC 40 MG PO (11:12)
== END 2024-10-07 11:14 | disposition home or self-care (01) ==
LOC: HO.ED 11:08
PROVIDERS: Emergency Provider Emergency Medicine
DX: F11.90 Opioid use, unspecified, uncomplicated (principal)
CPT/HCPCS: 99281; 99283